=== PATIENT | male | born 1960 | race Caucasian/White ===

== ENCOUNTER → 2016-11-27 | Outpatient (CLI) | payer MEDICARE ==
[~2016-11-27] MED LIST: BACTROBAN2% TP; ESCITALOPRAM10 M1 PO; KEFLEX 500MG.500 MG PO; LISINOPRIL10 MG PO; MELOXICAM15 MG PO; SEPTRA DS 800 M1 TAB PO; VICODIN 5/500 T1 TAB PO
--- NOTE | 2016-11-28 07:49 | RADIOLOGY REPORT PS360 ---
MRI-L-SPINE W/O HISTORY: Low back pain with right leg pain BACK PAIN ORDERING PHYSICIAN: Teodoro Sahni MD PATIENT AGE: 56 years COMPARISON: 07/07/2014 TECHNIQUE: Standard multiplanar multiecho sequences are performed without contrast. 3-D MIP and myelographic images are also rendered and reviewed FINDINGS: There is normal alignment. The spinal cord ends at the T12-L1 level. Multilevel degenerative disc disease with endplate osteophytes along the facet and ligamentum hypertrophy noted as detailed below. L2-L3: Severe degenerative disc disease with bulging disc and endplate osteophytes somewhat eccentric to the left with mild narrowing of the spinal canal and type II endplate changes. L3-L4: Severe degenerative disc disease with endplate osteophytes and bulging disc with type I endplate changes with narrowing of the spinal canal along with facet and ligamentum flavum hypertrophy with moderate to severe bilateral lateral recess narrowing and bilateral foraminal narrowing. L4-5: Severe degenerative disc disease with bulging disc along with endplate osteophytes and facet and ligamentum flavum hypertrophy. There is canal stenosis at this level along with moderate to severe bilateral lateral recess and foraminal narrowing. L5-S1: Moderate to severe degenerative disc disease with bulging disc with canal stenosis and moderate bilateral lateral recess and foraminal narrowing. IMPRESSION: 1. Multilevel severe lumbar spondylosis with degenerative disc disease, bulging disc, endplate changes, endplate osteophytes, along with facet and ligamentum flavum hypertrophy. Please see above for detailed description at each level. There is resultant lateral recess and foraminal narrowing as described above. 2. There is canal stenosis at L4-L5 and L5-S1 and borderline canal stenosis at L2-L3 and L3-L4. 3. No disc herniation evident. 4. Spondylosis is somewhat worse on today's study than when compared to 07/07/2014
== END ==
LOC: RAD 15:07
DX: M54.5 Low back pain (principal)